=== PATIENT | female | born 1935 | race Caucasian/White ===

== ENCOUNTER 2020-11-01 09:06 | Outpatient (CLI) | payer MEDICARE, SELFPAY ==
--- NOTE | 2020-11-01 11:00 | NEURO_ITS ---
Impression: # Complains of numbness of legs. Edema of both lower extremities noted. # Normal nerve conduction study with decreased amplitude of responses bilaterally requiring extra strength of stimulation. # Asymmetrical sensory response again because of edema. # Needle/EMG exam revealed no neurogenic changes; no fibs or myotonia. # Clinical correlation recommended; possibility of higher involvement needs to be ruled out. Nerve Conduction Studies Anti Sensory Summary Table Stim Site NR Peak (ms) P-T Amp (?V) Site1 Site2 Delta-P (ms) Dist (cm) Grady (m/s) Left Sup Fibular Anti Sensory (Ant Lat Mall) NO RESPONSE 14 cm NR 14 cm Ant Lat Mall 16.0 Right Sup Fibular Anti Sensory (Ant Lat Mall) NO RESPONSE 14 cm NR 14 cm Ant Lat Mall 16.0 Left Sural Anti Sensory (Lat Mall) Calf 4.4 6.8 Calf Lat Mall 4.4 16.0 36 Right Sural Anti Sensory (Lat Mall) NO RESPONSE Calf NR Calf Lat Mall 16.0 Motor Summary Table Stim Site NR Onset (ms) O-P Amp (mV) Site1 Site2 Delta-0 (ms) Dist (cm) Grady (m/s) Left Peroneal Motor (Vastus Med) Ankle 4.6 1.1 Popit Ankle 8.8 39.0 44 Popit 13.4 0.8 Right Peroneal Motor (Vastus Med) Ankle 4.6 0.8 Popit Ankle 8.8 38.0 43 Popit 13.4 0.7 Left Tibial Motor (Abd Lovett Brev) Ankle 4.7 0.2 Knee Ankle 10.6 44.0 42 Knee 15.3 0.8 Right Tibial Motor (Abd Lovett Brev) Ankle 4.1 0.6 Knee Ankle 9.9 42.0 42 Knee 14.0 0.1 F Wave Studies NR F-Lat (ms) L-R F-Lat (ms) Left Peroneal (Mrkrs) (EDB) 52.87 0.58 Right Peroneal (Mrkrs) (EDB) 53.45 0.58 Left Tibial (Mrkrs) (Abd Hallucis) 54.39 0.35 Right Tibial (Mrkrs) (Abd Hallucis) 54.74 0.35 EMG Side Muscle Nerve Root Ins Act Fibs Amp Dur Recrt Comment Right AntTibialis Dp Br Fibular L4-5 Nml Nml Nml Nml Nml Right Gastroc Tibial S1-2 Nml Nml Nml Nml Nml Right Fibularis Long Sup Br Fibular L5-S1 Nml Nml Nml Nml Nml Right Flex Dig Long Tibial L5-S2 Nml Nml Nml Nml Nml Right Ext Dig Brev Dp Br Fibular L5, S1 Nml Nml Nml Nml Nml Left AntTibialis Dp Br Fibular L4-5 Nml Nml Nml Nml Nml Left Gastroc Tibial S1-2 Nml Nml Nml Nml Nml Left Fibularis Long Sup Br Fibular L5-S1 Nml Nml Nml Nml Nml Left Flex Dig Long Tibial L5-S2 Nml Nml Nml Nml Nml Left Ext Dig Brev Dp Br Fibular L5, S1 Nml Nml Nml Nml Nml MTDD
== END 2020-11-01 09:07 | disposition home or self-care (01) ==
PROVIDERS: PCP Internal Medicine; Visit Provider Nurse Practitioner Gerontology
DX: G62.9 Polyneuropathy, unspecified (principal); R26.9 Unspecified abnormalities of gait and mobility; R20.2 Paresthesia of skin
CPT/HCPCS: 95886; 95910